=== PATIENT | male | born 1955 | race Caucasian/White ===

== ENCOUNTER 2023-06-17 16:33 | Emergency (ER) | payer MEDICARE, OTHER ==
[2023-06-17] MEDS ORDERED: Acetaminophen/HYDROcodone 325-5 MG Tab PO ONE (16:34)
[2023-06-17] MEDS ORDERED: Acetaminophen/HYDROcodone 325-5 MG Tab PO PRN (17:47)
[2023-06-17] MEDS: Acetaminophen/HYDROcodone 325-5 MG Tab PO ONE (18:03)
[2023-06-17] MEDS: Diphtheria,Pertussis(Acell),Tetanus Vaccine 0.5 ML Syringe IM ONE (18:04)
[2023-06-17] MEDS: Amoxicillin/Clavulanate K 875-125 MG Tab PO ONE (21:14)
== END 2023-06-17 21:18 | disposition home or self-care (01) ==
LOC: FB.ED 16:33
DX: S62.635A Displaced fracture of distal phalanx of left ring finger, initial encounter for closed fracture (principal); S61.213A Laceration without foreign body of left middle finger without damage to nail, initial encounter; S61.211A Laceration without foreign body of left index finger without damage to nail, initial encounter; Z79.899 Other long term (current) drug therapy; Z23 Encounter for immunization; W26.8XXA Contact with other sharp object(s), not elsewhere classified, initial encounter; Y93.89 Activity, other specified
CPT/HCPCS: 12001; 73130-LT; 90471; 90715; 99283-25; 99284; A9270-GY